=== PATIENT | female | born 1950 | race Caucasian/White ===

== ENCOUNTER 2025-03-22 10:32 | Emergency (ER) | payer MEDICARE, OTHER, SELFPAY ==
[2025-03-22 10:45] VITALS: BP 144/71
--- NOTE | 2025-03-22 11:11 | ED.GENMED ---
History of Present Illness
General
Chief Complaint: Head Injury
Source: patient and family
Exam Limitations: none
Time Seen by Provider: 03/22/25 10:53
History of Present Illness
History of Present Illness:
74yoF with a history of hypertension presenting with her daughter for evaluation after a fall last night. Patient's fell on the ground and she was trying to help him up. Patient ended up falling onto her left knee. She also struck her
head against the door. There was no loss of consciousness. Patient is presenting with headache, neck pain, and left knee pain. She has been able to ambulate today. She denies any dizziness or vomiting. She does not take any blood thinners.
Phy Exam
General Physical Exam
General Presentation: well appearing and no apparent distress
General Skin: warm and dry
General Habitus: normal
General Mental: alert
ENT Exam
ENT Exam: normocephalic (No external signs of head trauma.) and other (No cervical spine tenderness)
Eye Exam
Eye Exam: PERRL and conjunctiva normal
Pulmonary Exam
Pulmonary Exam: lungs clear, no respiratory distress, no rales, no crackles and no rhonchi
Neurological Exam
Neurological Exam: alert
[place] Coma Scale
Eye Opening: Spontaneous
Verbal Response: Oriented
Motor Response: Obeys Commands
GCS Total Score: 15
Musculoskeletal Exam
Musculoskeletal Exam: other (Mild swelling to L knee. No deformity. +Tenderness to inferior aspect of knee. ROM intact. 2+ DP pulse.)
Skin Exam
Skin Exam: normal color and warm/dry
Psychiatric Exam
Psychiatric Exam: normal mood/affect
Course
Orders/Labs/Results
Orders:
Orders
03/22/25 10:50
Knee, Left 4 or More Views [CR Knee - Left 4 Or More View*] Urgent
Comment:
Reason For Exam: fall
03/22/25 11:11
CT Cervical Spine W/o Iv Contr Urgent
Comment:
Reason For Exam: neck injury, fall
CT Head W/o Iv Contrast Urgent
Comment:
Reason For Exam: head injury, fall
03/22/25 12:34
Lidocaine [Lidocaine 4% Patch] 1 patch TOPICAL ONCE ONE
Apply Lidocaine patch(s) to:: neck
Vital Signs
Initial and Last Documented VS:
Initial Vital Signs
Temp Pulse Resp BP Pulse Ox
98.3 F 64 16 144/71 98
03/22/25 10:45 03/22/25 10:45 03/22/25 10:45 03/22/25 10:45 03/22/25 10:45
Last Documented Vital Signs
Temp Pulse Resp BP Pulse Ox
98.3 F 64 16 144/71 98
03/22/25 10:45 03/22/25 10:45 03/22/25 10:45 03/22/25 10:45 03/22/25 10:45
MDM/Problems Addressed
Differential Diagnosis Includes:
74yoF here after a fall last night. +Head strike, no LOC. C/o headache, neck pain, L knee pain. VSS. She is awake, alert, with a GCS of 15. No external signs of head trauma noted. Mild swelling to L knee without deformity. Differential diagnosis
includes but is not limited to: closed head injury, fracture, intracranial hemorrhage
Initial ED plan: Check L knee x-rays and CT head/cervical spine.
*Critical Care Note
Total Time (30-74mins, 75-104mins- exclusive of procedures): Not Applicable
Update Note
Update Note:
No traumatic injuries noted on imaging. Patient stable for discharge. Supportive care discussed and advised f/u with PCP.
ED Attending Note
-
Portions of this chart may have been created with voice recognition software.� Occasional wrong word or��sound alike� substitutions may have occurred due to the inherent limitations of voice recognition software.
Discharge Plan
Departure
Patient Disposition: Home (Routine Discharge)
Date of Disposition: 03/22/25
Time of Disposition: 12:35
Patient with high blood pressure during this ER visit?: Yes
Discharge Problem:
Ground-level fall, Closed head injury, Cervical strain, Acute pain of left knee
Instructions: Head Injury in Adults (DC)
Referrals:
Luis Fernando Tompkins MD [Family Provider] -
Activity Restrictions/Additional Instructions:
Take Tylenol as needed for pain and apply ice to affected area.
Please follow-up with your family doctor. Return to the ER with any new or worsening symptoms.
Interventions
Interventions:
*Risk Screen - Suicide Last Done: 03/22/25 10:45
*General Assessment Last Done: 03/22/25 11:28
*Neglect/Abuse Screening Last Done: 03/22/25 10:45
*ED COVID-19 Vaccine History Last Done: 03/22/25 11:28
*Nursing Disposition Last Done: 03/22/25 12:55
ED- Neurological Assessment Last Done: 03/22/25 11:28
ED-Skin Assessment Last Done: 03/22/25 11:28
Discharge Date and Time
Discharge Date/Time: 03/22/25 12:58
Print Language: CYMRO
[2025-03-22] MEDS: LIDOCAINE 4% PATCH 1 PATCH TOPICAL (12:45)
== END 2025-03-22 12:58 | disposition home or self-care (01) ==
LOC: EMR 10:32
PROVIDERS: EMERGENCY PHYSICIAN Emergency Medicine; FAMILY PHYSICIAN Internal Medicine
DX: S09.90XA Unspecified injury of head, initial encounter (principal); S16.1XXA Strain of muscle, fascia and tendon at neck level, initial encounter; M25.562 Pain in left knee; W18.30XA Fall on same level, unspecified, initial encounter; W22.09XA Striking against other stationary object, initial encounter; I10 Essential (primary) hypertension
CPT/HCPCS: 99284; 70450; 72125; 73564